=== PATIENT | male | born 1975 | race Hispanic/Latino ===

== ENCOUNTER 2025-01-12 22:59 | Emergency (ER) | payer OTHER ==
[~2025-01-12] VITALS: Ht 172.7 cm; Wt 69.9 kg
[2025-01-12 23:02] VITALS: TEMP 98.7
[2025-01-12] MEDS: SODIUM CHLORIDE 0.9% 1000ML 1,000 ML IV STA (23:44)
[2025-01-13] VITALS: PULSE 95; RESP 14
[2025-01-13] MEDS: SODIUM CHLORIDE 0.9% 1000ML 1,000 ML IV ONE (00:03)
[2025-01-13] MEDS: LORAZEPAM INJ 2 MG/ML VIAL IV ONE (00:05)
[2025-01-13 03:12] VITALS: BP 117/67; PULSE 98; RESP 12; TEMP 98.4
== END 2025-01-13 01:06 | disposition home or self-care (01) ==
LOC: EDBD 23:07 → FSED 23:07
DX: F12.10 Cannabis abuse, uncomplicated (principal); T65.291A Toxic effect of other tobacco and nicotine, accidental (unintentional), initial encounter; Y92.89 Other specified places as the place of occurrence of the external cause
CPT/HCPCS: 71045; 80053; 84484; 85025; 99284; J2060; J7030; 93005